=== PATIENT | female | born 1990 | race African-American/Black ===

== ENCOUNTER 2022-05-25 06:02 | Inpatient (IN) ==
[2022-05-25] MEDS ORDERED: CARBOPROST TROMETHAMINE 250 MCG/ML AMP IM PRN (06:14)
[2022-05-25] MEDS ORDERED: miSOPROStoL 200 MCG TABLET RECTAL PRN (06:14)
[2022-05-25] MEDS ORDERED: LACTATED RINGERS 500 ML IV PRN (06:14)
[2022-05-25] MEDS ORDERED: TRANEXAMIC ACID 1,000 MG in SODIUM CHLORIDE 0.9% 100 ML IV PRN (06:14)
[2022-05-25] MEDS ORDERED: MEPERIDINE 50 MG/1 ML VIAL IV PRN (06:14)
[2022-05-25] MEDS ORDERED: BUTORPHANOL 2 MG/ML VIAL IV PRN (06:14)
[2022-05-25] MEDS ORDERED: ONDANSETRON 4 MG/2 ML VIAL IV PRN (06:14)
[2022-05-25] MEDS ORDERED: OXYTOCIN/LR 20 UNIT/1,000 ML BAG IV ONE ×2 (06:14→19:49)
[2022-05-25] MEDS ORDERED: METHYLERGONOVINE 0.2 MG/1 ML AMP IM PRN (06:14)
[2022-05-25] MEDS ORDERED: LACTATED RINGERS 250 ML IV ONE (06:14)
[2022-05-25 06:34] LABS: Basophils % 0.2 % (0.0-0.8); Eosinophils # 0.1 10*3/uL (0.0-0.87); Eosinophils % 1.1 % (0.00-10.9); Hematocrit 36.1 VOL% (35.7-47.0); Hemoglobin 12.2 GM/DL (12.0-16.0); Immature Granulocytes % 0.5 %; Immature Granulocytes Absolute 0.03 #; Lymphocytes # 2.4 10*3/uL (1.4-4.0); Lymphocytes % 36.5 % (21.3-54.2); Mean Corpuscular HGB Conc 33.8 GM/DL (32-36); Mean Corpuscular Volume 87.8 FL (87-102); Mean Platelet Volume 9.1 FL (9.6-12.0); Monocytes # 0.4 10*3/uL (0.11-0.8); Neutrophils % 55.7 % (38.7-73.9); Platelet Count 217 T/CUMM (130-400); Red Blood Count 4.11 MC/CUMM (3.8-5.5); Red Cell Distribution Width 14.5 % (9.3-17.3); White Blood Count 6.5 T/CUMM (4-12)
[2022-05-25] MEDS ORDERED: OXYTOCIN/LR 30 UNIT/1,000 ML BAG IV ONE (07:34)
[2022-05-25] MEDS ORDERED: OXYTOCIN/LR 20 UNIT/1,000 ML BAG IV SCH (08:00)
[2022-05-25] MEDS: LACTATED RINGERS 1,000 ML IV SCH ×3 (08:08→15:41)
[2022-05-25] MEDS ORDERED: ePHEDrine 50 MG/ML VIAL IV PRN (09:23)
[2022-05-25] MEDS ORDERED: NALOXONE 0.4 MG/ML VIAL IV PRN (09:23)
[2022-05-25] MEDS ORDERED: PROMETHAZINE 25 MG/1 ML VIAL IM ONE (09:23)
[2022-05-25] MEDS ORDERED: FAMOTIDINE 20 MG/2 ML VIAL IV ONE (09:23)
[2022-05-25] MEDS ORDERED: hydrOXYzine HCL 25 MG/1 ML VIAL IM PRN (09:23)
[2022-05-25] MEDS ORDERED: diphenhydrAMINE 50 MG/1 ML VIAL IV PRN ×2 (09:23)
[2022-05-25] MEDS ORDERED: CITRIC ACID/SODIUM CITRATE 30 ML UDCUP PO ONE (09:23)
[2022-05-25] MEDS ORDERED: fentaNYL 2 MCG/ROPIV 0.2% EPID 100 ML EPIDURAL SCH (09:30)
[2022-05-25 12:20] LABS: Albumin 2.6 G/DL (3.4-5.0); Bilirubin,Total 0.4 MG/DL (0.20-1.00); Calcium 9.3 MG/DL (8.5-10.1); Osmolality,Calculated 271.8 MOS/KG (273-304); Potassium 3.8 MMOL/L (3.5-5.1); Total Protein 7.4 G/DL (6.4-8.2)
[2022-05-25 13:54] LABS: Bilirubin,Urine Negative (Negative); Blood, Urine Negative (Negative); Glucose,Urine (UA) Negative (Negative); Ketones,Urine Negative (Negative); Nitrite,Urine Negative (Negative); Protein,Urine Negative (Negative); Urine Appearance Clear (Clear); Urine Color Yellow (Yellow); Urine Specific Gravity 1.025 (1.001-1.035)
[2022-05-25 13:57] LABS: Mucus,Urine Occasional /LPF (Occasional); RBC,Urine 1 /HPF (0-4); Squamous Epithelial Cell,Urine Occasional /HPF (0-10)
[2022-05-25] MEDS ORDERED: miSOPROStoL 200 MCG TABLET ONE (16:52)
[2022-05-25] MEDS ORDERED: TRANEXAMIC ACID 1,000 MG/10 ML VIAL ONE (16:52)
[2022-05-25] MEDS ORDERED: METHYLERGONOVINE 0.2 MG/1 ML AMP ONE (16:52)
[2022-05-25] MEDS ORDERED: SODIUM CHLORIDE 0.9% 0 ML IV ONE (16:52)
[2022-05-25] MEDS ORDERED: CARBOPROST TROMETHAMINE 250 MCG/ML AMP IM ONE (16:52)
[2022-05-25 17:22] LABS: Cord Arterial Blood HCO3 21.9 MMOL/L
[2022-05-25 17:25] LABS: Cord Venous Blood HCO3 21.9 MMOL/L; Cord Venous Blood PCO2 47.3 MMHG; Cord Venous Blood PO2 25.8
[2022-05-25] MEDS ORDERED: ACETAMINOPHEN 325 MG TABLET PO PRN (19:49)
[2022-05-25] MEDS ORDERED: oxyCODONE/ACETAMINOPHEN 5-325 MG TABLET PO PRN (19:49)
[2022-05-25] MEDS ORDERED: BISACODYL 10 MG SUPP RECTAL PRN (19:49)
[2022-05-25] MEDS ORDERED: DIPH/TET/ACEL PERT BOOSTER VACCINE 0.5 ML VIAL IM ONE (19:49)
[2022-05-25] MEDS ORDERED: HYDROCORTISONE 2.5% RECTAL CREAM 30 GM TUBE TOP PRN (19:49)
[2022-05-25] MEDS ORDERED: WITCH HAZEL PADS 100/JAR TOP PRN (19:49)
[2022-05-25] MEDS ORDERED: BENZOCAINE 20%/MENTHOL 0.5% SPRAY 56 GM CAN TOP PRN (19:49)
[2022-05-25] MEDS ORDERED: RHO(D) IMMUNE GLOBULIN 300 MCG SYRINGE IM ONE (19:49)
[2022-05-25] MEDS ORDERED: MEASLES/MUMPS/RUBELLA VACCINE 0.5 ML VIAL SUBCUT ONE (19:49)
[2022-05-25] MEDS ORDERED: LANOLIN 50% CREAM 0.3 OZ TUBE TOP PRN (19:49)
[2022-05-26] MEDS: oxyCODONE/ACETAMINOPHEN 5-325 MG TABLET PO PRN ×2 (01:05→11:28)
[2022-05-26] MEDS: IBUPROFEN 800 MG TABLET PO PRN (01:15)
[2022-05-26 04:08] LABS: Basophils % 0.3 % (0.0-0.8); Eosinophils # 0.1 10*3/uL (0.0-0.87); Eosinophils % 0.5 % (0.00-10.9); Hematocrit 30.5 VOL% (35.7-47.0); Immature Granulocytes % 0.5 %; Immature Granulocytes Absolute 0.05 #; Lymphocytes # 2.3 10*3/uL (1.4-4.0); Lymphocytes % 21.5 % (21.3-54.2); Mean Corpuscular HGB Conc 32.8 GM/DL (32-36); Mean Corpuscular Volume 89.4 FL (87-102); Mean Platelet Volume 9.6 FL (9.6-12.0); Monocytes # 0.8 10*3/uL (0.11-0.8); Monocytes % 7.3 % (1.7-12.7); Neutrophils % 69.9 % (38.7-73.9); Platelet Count 190 T/CUMM (130-400); Red Blood Count 3.41 MC/CUMM (3.8-5.5); Red Cell Distribution Width 14.6 % (9.3-17.3); White Blood Count 10.8 T/CUMM (4-12)
[2022-05-26] MEDS: DOCUSATE SODIUM 100 MG CAPSULE PO SCH ×3 (04:51→20:35)
[2022-05-27] MEDS: IBUPROFEN 800 MG TABLET PO PRN ×2 (04:06→10:03)
[2022-05-27] MEDS: DOCUSATE SODIUM 100 MG CAPSULE PO SCH (10:02)
[2022-05-27 12:33] VITALS: BP 137/79
== END 2022-05-27 12:00 | disposition home or self-care (01) | DRG 807 ==
LOC: N.LDOUT 06:02 → N.LD 06:04 → N.OB 20:29
PROVIDERS: ADMIT Obstetrics & Gynecology; ATTEND Obstetrics & Gynecology